=== PATIENT | male | born 1980 | race African-American/Black ===

== ENCOUNTER 2017-12-16 22:10 | Emergency (ER) | payer OTHER ==
[2017-12-17] MEDS: DEXTROSE 5%-0.45% NACL 1,000 ML IV ×2 (00:55→10:40)
[2017-12-17] MEDS ORDERED: ALBUTEROL/IPRATROPIUM (NEB) 3 ML AMP HHN (01:00)
[2017-12-17] MEDS ORDERED: NACL 0.9% 3 ML SYG IV (01:00)
[2017-12-17] MEDS ORDERED: NITROGLYCERIN (SL) 0.4 MG TAB SL (01:00)
[2017-12-17] MEDS: ONDANSETRON 4 MG INJ IV (01:38)
[2017-12-17] MEDS: HYDROmorphONE 0.5 MG/0.5 ML SYG IV (01:38)
[2017-12-17] MEDS: METHYLPREDNISOLONE 125 MG INJ IV (01:38)
[2017-12-17 06:35] LABS: IMMEDIATE SPIN CROSSMATCH 1 2
[2017-12-17 08:58] LABS: ADD MAN DIFF? NO
[2017-12-17 09:11] LABS: BASOPHILS % 0.1 % (0.0-2.0); HEMATOCRIT 26.5 % (42.0-52.0); HEMOGLOBIN 8.6 g/dl (14.0-18.0); LYMPHOCYTES # 1.4 10^3/ul (0.8-2.9); LYMPHOCYTES % 10.9 % (15.0-51.0); MEAN CORPUSCULAR HEMOGLOBIN 24.9 pg (29.0-33.0); MEAN CORPUSCULAR HGB CONC 32.5 g/dl (32.0-37.0); MEAN CORPUSCULAR VOLUME 76.6 fl (82.0-101.0); MEAN PLATELET VOLUME 9.4 fl (7.4-10.4); MONOCYTE # 0.1 10^3/ul (0.3-0.9); MONOCYTES % 0.5 % (0.0-11.0); NEUTROPHIL # 11.2 10^3/ul (1.6-7.5); NEUTROPHILS % 87.6 % (39.0-77.0); PLATELET COUNT 299 10^3/UL (140-415); POSITIVE DIFF @See below; RED BLOOD COUNT 3.46 10^6/ul (4.70-6.10); RED CELL DISTRIBUTION WIDTH 15.7 % (11.5-14.5)
[2017-12-17 09:11] LABS: WHITE BLOOD COUNT 12.8 10^3/ul (4.8-10.8)
[2017-12-17 09:37] LABS: CREATINE KINASE 191 IU/L (23-200)
[2017-12-17 09:43] LABS: ALANINE AMINOTRANSFERASE 30 IU/L (13-69); ALBUMIN 2.8 g/dl (3.3-4.9); ALBUMIN/GLOBULIN RATIO 0.93; ALKALINE PHOSPHATASE 43 IU/L (42-121); ANION GAP 9 (8-16); ASPARTATE AMINO TRANSFERASE 22 IU/L (15-46); BILIRUBIN,INDIRECT 0.7 mg/dl (0-1.1); BILIRUBIN,TOTAL 0.7 mg/dl (0.2-1.3); BLOOD UREA NITROGEN 18 mg/dl (7-20); CALCIUM 8.5 mg/dl (8.4-10.2); CARBON DIOXIDE 29 mmol/L (21-31); CHLORIDE 103 mmol/L (97-110); CHOL/HDL RATIO 3.2 RATIO; CHOLESTEROL 92 mg/dl (100-200); CREATININE 0.96 mg/dl (0.61-1.24); GLUCOSE 138 mg/dl (70-220); HDL CHOLESTEROL 28 mg/dl (28-63); LDL CHOLESTEROL,CALCULATED 51 mg/dl; POTASSIUM 4.8 mmol/L (3.5-5.1); SODIUM 136 mmol/L (135-144); TOTAL PROTEIN 5.8 g/dl (6.1-8.1); TRIGLYCERIDES 64 mg/dl (0-149)
[2017-12-17 09:48] LABS: IRON 132 ug/dl (35-150)
[2017-12-17 09:51] LABS: CK INDEX 0.7; TROPONIN-I < 0.012 ng/ml (0.00-0.12)
[2017-12-17 10:04] LABS: ANISOCYTOSIS 1+ (0-0); BAND NEUTROPHILS #M 0.3 10^3/ul (0.0-0.6); BAND NEUTROPHILS % (M) 3 % (0-4); GIANT THROMBO% (M) 1 % (0-0); HYPOCHROMASIA 1+ (0-0); LYMPHOCYTES #M 1.4 10^3/ul (0.8-2.9); LYMPHOCYTES % (M) 11 % (15-51); MICROCYTOSIS 1+ (0-0); MYELOCYTES #M 0.1 10^3/ul (0.0-0.0); MYELOCYTES % (M) 1 % (0-0); PLATELET ESTIMATE NORMAL; POIKILOCYTOSIS 2+ (0-0); POLYCHROMASIA 3+ (0-0); REACTIVE LYMPHOCYTES #M 0.1 10^3/ul (0.0-0.0); REACTIVE LYMPHOCYTES% (M) 1 % (0-0); SEG NEUT #M 10.8 10^3/ul (1.6-7.5); SEGMENTED NEUTROPHILS (M) % 84 % (39-77); SMUDGE%M 3 % (0-0)
[2017-12-17] MEDS ORDERED: IOHEXOL 300MG/ML 150 ML BTL (10:18)
[2017-12-17] MEDS ORDERED: SOD CHLORIDE 0.9% 0 ML (10:18)
[2017-12-17] MEDS: PANTOPRAZOLE 40 MG INJ IV (10:40)
[2017-12-17] MEDS: VITAMIN A & D 5 GM OINT PACKET TOP (10:40)
[2017-12-17 11:52] LABS: % IRON SATURATION 49 % SAT (22-52); TOTAL IRON BINDING CAPACITY 267 ug/dl (241-421)
[2017-12-17 17:43] LABS: FERRITIN 83.7 ng/ml (17.9-464.0)
== END 2017-12-17 15:51 | disposition left against medical advice (07) ==
LOC: E/R 22:10
DX: K92.2 Gastrointestinal hemorrhage, unspecified (principal); K51.919 Ulcerative colitis, unspecified with unspecified complications
CPT/HCPCS: 36430; 80053; 80061; 82550; 82553; 82728; 83036; 83540; 84484; 85025; 86850; 86900; 86901; 86920; 96374; 96375; 99284-25